=== PATIENT | female | born 1945 | race Caucasian/White ===

== ENCOUNTER 2017-12-11 09:27 | Emergency (ER) | payer MEDICARE | END 2017-12-11 12:33 | disposition home or self-care (01) | LOC: ER 09:27 | DX: M25.561 Pain in right knee (principal); Z85.3 Personal history of malignant neoplasm of breast; Z90.49 Acquired absence of other specified parts of digestive tract; Z90.710 Acquired absence of both cervix and uterus; Z88.5 Allergy status to narcotic agent; Z88.0 Allergy status to penicillin | CPT/HCPCS: 73564; 93971; 99284 ==

== ENCOUNTER 2017-12-18 09:10 | Emergency (ER) | payer MEDICARE ==
[2017-12-18] MEDS: methylPREDNISolone SOD SUCC PF 125 MG/2 ML VIAL. IM ×2 (10:06)
[2017-12-18] MEDS: KETOROLAC 60 MG/2 ML INJ. IM ×2 (10:06)
== END 2017-12-18 10:09 | disposition home or self-care (01) ==
LOC: ER 09:10
DX: M25.561 Pain in right knee (principal); F17.200 Nicotine dependence, unspecified, uncomplicated; Z90.49 Acquired absence of other specified parts of digestive tract; Z90.710 Acquired absence of both cervix and uterus; Z90.13 Acquired absence of bilateral breasts and nipples; Z88.0 Allergy status to penicillin; Z88.5 Allergy status to narcotic agent
CPT/HCPCS: 96372; 99284; J1885; J2930

== ENCOUNTER 2018-05-12 12:00 | Emergency (ER) | payer OTHER, MEDICARE ==
[2018-05-12] MEDS: IBUPROFEN 800 MG TABLET. PO (13:49)
== END 2018-05-12 13:55 | disposition home or self-care (01) ==
LOC: ER 13:55
DX: S63.91XA Sprain of unspecified part of right wrist and hand, initial encounter (principal); Z88.0 Allergy status to penicillin; Z88.5 Allergy status to narcotic agent; W01.0XXA Fall on same level from slipping, tripping and stumbling without subsequent striking against object, initial encounter; Y93.B2 Activity, push-ups, pull-ups, sit-ups; Y99.8 Other external cause status; Y92.89 Other specified places as the place of occurrence of the external cause
CPT/HCPCS: 73130; 99284

== ENCOUNTER 2018-05-17 08:58 | Emergency (ER) | payer OTHER | END 2018-05-17 11:01 | disposition home or self-care (01) | LOC: ER 08:58 | DX: S16.1XXA Strain of muscle, fascia and tendon at neck level, initial encounter (principal); M47.892 Other spondylosis, cervical region; R91.1 Solitary pulmonary nodule; Z88.0 Allergy status to penicillin; Z88.5 Allergy status to narcotic agent; W18.39XA Other fall on same level, initial encounter; Y93.89 Activity, other specified; Y99.0 Civilian activity done for income or pay; Y92.69 Other specified industrial and construction area as the place of occurrence of the external cause | CPT/HCPCS: 72125; 99284-25 ==

== ENCOUNTER 2018-11-14 15:46 | Emergency (ER) | payer MEDICARE, OTHER ==
[~2018-11-14] VITALS: Ht 162.6 cm; Wt 64.4 kg
[~2018-11-14 15:46] MED LIST: CYCL10TA2 PO; DICL100G18 TP; DICL50TA4 PO; HYDR-3164 PO; METH4TAB2 PO; PRED20TA PO; SULF1TAB24 PO
[2018-11-14] MEDS ORDERED: IV NORMAL SALINE 500ML BAG 500 ML IV ONE (18:30)
[2018-11-14] MEDS ORDERED: IPRATRPIUM/ALBUTEROL 0.5/2.5MG 3 ML NEBU. NEB ONE (18:30)
[2018-11-14] MEDS ORDERED: methylPREDNISolone SOD SUCC PF 125 MG/2 ML VIAL. IV ONE (18:30)
[2018-11-14 18:41] LABS: BASO # 0.1 x10^3/uL (0.0-0.2); BASO % 1 % (0-3); EOS # 0.2 x10^3/uL (0.0-0.7); EOS % 2 % (0-3); HEMATOCRIT 40.9 % (36.0-47.0); HEMOGLOBIN 13.8 g/dL (12.0-15.5); LYMPH # 1.4 x10^3/uL (1.0-4.8); LYMPH % 12 % (24-48); MEAN CORPUSCULAR HEMOGLOBIN 32 pg (25-35); MEAN CORPUSCULAR HGB CONC 34 g/dL (31-37); MEAN CORPUSCULAR VOLUME 94 fL (79-100); MONO # 1.1 x10^3/uL (0.0-1.1); MONO % 10 % (0-9); NEUT % 76 % (31-73); PLATELET COUNT 206 x10^3/uL (140-400); RED BLOOD COUNT 4.33 x10^6/uL (3.50-5.40); RED CELL DISTRIBUTION WIDTH 14.1 % (11.5-14.5); WHITE BLOOD COUNT 11.9 x10^3/uL (4.0-11.0)
--- NOTE | 2018-11-14 18:41 | PHYS DOC ---
Past Medical History Past Medical History: Cancer, Other Additional Past Medical Histor: breast ca Past Surgical History: Appendectomy, Hysterectomy, Other Additional Past Surgical Histo: double mastectomy, exploratory lap Alcohol Use: Rarely Drug Use: None Adult General Chief Complaint Chief Complaint: SHORTNESS OF BREATH HPI HPI Patient is a 73 year old female who presents with cough and general malaise. Patient does not have a diagnosis of COPD but she does have an extensive history of tobacco use since she was 16 years old. Today, she reports to the ER with a 5 day history of productive cough and general malaise. She states that she thought she was improving until yesterday when she had more of a sudden onset of muscle aches and generalized pain. She describes some purulent sputum production. No acute dyspnea. Denies chest pain. No ill contacts. No recent travel. Denies nausea or vomiting. No abdominal pain. Patient does not normally use oxygen. Review of Systems Review of Systems Constitutional: + chills Eyes: Denies change in visual acuity HENT: Denies nasal congestion or sore throat Respiratory: + cough productive Cardiovascular: No additional information not addressed in HPI GI: Denies abdominal pain, nausea, vomiting : Denies dysuria Musculoskeletal: Denies back pain Integument: Denies rash or skin lesions Neurologic: Denies headache Endocrine: Denies polyuria All other systems were reviewed and found to be within normal limits, except as documented in this note. Current Medications Current Medications Current Medications Medications (Trade) Dose Ordered Sig/Fred Start Time Stop Time Status Last Admin Dose Admin Acetaminophen (Tylenol) 1,000 mg 1X ONCE 11/14/18 19:00 11/14/18 19:01 DC 11/14/18 19:05 1,000 MG Albuterol/ Ipratropium (Duoneb) 3 ml 1X ONCE 11/14/18 18:30 11/14/18 18:32 DC 11/14/18 18:43 3 ML Azithromycin (Zithromax) 500 mg 1X ONCE 11/14/18 21:30 11/14/18 21:31 DC 11/14/18 21:30 500 MG Methylprednisolone Sodium Succinate (SOLU-Medrol 125MG VIAL) 125 mg 1X ONCE 11/14/18 18:30 11/14/18 18:32 DC 11/14/18 19:05 125 MG Sodium Chloride 500 ml @ 500 mls/hr 1X ONCE 11/14/18 18:30 11/14/18 19:29 DC 11/14/18 19:05 500 MLS/HR Allergies Allergies Allergies Coded Allergies Type Severity Reaction Last Updated Verified Penicillins Allergy Intermediate 05/12/18 Yes codeine Allergy Intermediate morphine ok 05/12/18 Yes Physical Exam Physical Exam Constitutional: Well developed, well nourished, no acute distress, non-toxic appearance HENT: Normocephalic, atraumatic, bilateral external ears normal, oropharynx moist Eyes: PERRLA, EOMI, conjunctiva normal, no discharge Neck: Normal range of motion, no tenderness, supple Cardiovascular:Heart rate regular rhythm, no murmur Lungs & Thorax: diminished bilaterally, few scattered wheezes Abdomen: Bowel sounds normal, soft, no tenderness Skin: Warm, dry, no erythema Extremities: No tenderness, edema, equal pulses in all extremities Neurologic: Alert and oriented X 3 Psychologic: Affect normal Current Patient Data Vital Signs Vital Signs Date Time Temp Pulse Resp B/P (MAP) Pulse Ox O2 Delivery O2 Flow Rate FiO2 11/14/18 18:55 86 183/85 (117) 92 Room Air 11/14/18 18:07 100.7 24 100.7 Lab Values Laboratory Tests Test 11/14/18 18:25 White Blood Count 11.9 x10^3/uL (4.0-11.0) H Red Blood Count 4.33 x10^6/uL (3.50-5.40) Hemoglobin 13.8 g/dL (12.0-15.5) Hematocrit 40.9 % (36.0-47.0) Mean Corpuscular Volume 94 fL (79-100) Mean Corpuscular Hemoglobin 32 pg (25-35) Mean Corpuscular Hemoglobin Concent 34 g/dL (31-37) Red Cell Distribution Width 14.1 % (11.5-14.5) Platelet Count 206 x10^3/uL (140-400) Neutrophils (%) (Auto) 76 % (31-73) H Lymphocytes (%) (Auto) 12 % (24-48) L Monocytes (%) (Auto) 10 % (0-9) H Eosinophils (%) (Auto) 2 % (0-3) Basophils (%) (Auto) 1 % (0-3) Neutrophils # (Auto) 9.0 x10^3uL (1.8-7.7) H Lymphocytes # (Auto) 1.4 x10^3/uL (1.0-4.8) Monocytes # (Auto) 1.1 x10^3/uL (0.0-1.1) Eosinophils # (Auto) 0.2 x10^3/uL (0.0-0.7) Basophils # (Auto) 0.1 x10^3/uL (0.0-0.2) Sodium Level 140 mmol/L (136-145) Potassium Level 4.0 mmol/L (3.5-5.1) Chloride Level 105 mmol/L (98-107) Carbon Dioxide Level 29 mmol/L (21-32) Anion Gap 6 (6-14) Blood Urea Nitrogen 17 mg/dL (7-20) Creatinine 0.7 mg/dL (0.6-1.0) Estimated GFR (Cockcroft-Gault) 82.0 Glucose Level 110 mg/dL (70-99) H Calcium Level 10.5 mg/dL (8.5-10.1) H Troponin I Quantitative < 0.017 ng/mL (0.000-0.055) UV-Sjq-A-Type Natriuretic Peptide 639 pg/mL (0-124) H Influenza Type A Antigen Negative (NEGATIVE) Influenza Type B Antigen Negative (NEGATIVE) Laboratory Tests 11/14/18 18:25 Laboratory Tests 11/14/18 18:25 EKG EKG [] Radiology/Procedures Radiology/Procedures Emphysematous changes No acute consolidations seen Course & Med Decision Making Course & Med Decision Making Pertinent Labs and Imaging studies reviewed. (See chart for details) 18:00: Patient is seen and examined. She has no acute distress. Her presentation seems most consistent with influenza or COPD exacerbation. She has no severely diminished airflow but does have a few wheezes bilaterally. No prior diagnosis of obstructive lung disease but patient likely has emphysema based on her tobacco history. Will check chest x-ray, basic labs and screening for influenza. DuoNeb is also ordered. Patient was evaluated in the ER for cough and general malaise. Her primary complaint was cough. Her x-ray did not reveal any acute findings. She was given 1 DuoNeb in the ER which did improve her symptoms. She was also started on a azithromycin, given 500 mg, in the ER. She was discharged to home and advised follow-up with her primary care doctor or return to the ER. Prior to discharge, the patient was ambulated about the department. Her oxygen saturation remained greater than 95%. The patient's lungs were entirely clear at the time of discharge and she had no dyspnea. Return precautions were discussed and she was advised to come back to the ER for any new or worsening symptoms. Dragon Disclaimer Dragon Disclaimer This electronic medical record was generated, in whole or in part, using a voice recognition dictation system. Departure Departure Disposition: HOME, SELF-CARE Condition: GOOD Referrals: NO PCP (PCP) Scripts Guaifenesin (TUSSIN) 100 Mg/5 Ml Liquid 100 MG PO Q6H, #120 ML Prov: DELMER ROY DO 11/14/18 Benzonatate (TESSALON PERLE) 100 Mg Capsule 100 MG PO TID PRN for COUGH for 5 Days, #15 CAP Prov: DELMER ROY DO 11/14/18 Azithromycin (AZITHROMYCIN TABLET) 250 Mg Tablet 250 MG PO DAILY for ANTI-BIOTIC for 4 Days, #4 TAB 0 Refills Prov: DELMER ROY DO 11/14/18 DELMER ROY DO Nov 14, 2018 18:41
[2018-11-14 18:43] LABS: CALCIUM 10.5 mg/dL (8.5-10.1); CREATININE 0.7 mg/dL (0.6-1.0)
[2018-11-14 18:54] LABS: INFLUENZA A PATIENT NEGATIVE (NEGATIVE); INFLUENZA B PATIENT NEGATIVE (NEGATIVE)
[2018-11-14] MEDS ORDERED: ACETAMINOPHEN 500 MG TABLET PO ONE (19:00)
[2018-11-14 20:48] VITALS: BP 166/72
[2018-11-14] MEDS ORDERED: AZITHROMYCIN 250 MG TABLET. PO ONE (21:30)
[2018-11-14] MEDS ORDERED: AZIT250T6 PO (21:48)
[2018-11-14] MEDS ORDERED: GUAI100L34 PO (21:48)
[2018-11-14] MEDS ORDERED: BENZ100C PO (21:48)
--- NOTE | 2018-11-14 23:47 | RAD ---
Examination: PORTABLE CHEST 1V History: ER PATIENT. COUGH. HX DOUBLE MASCECTOMY. NO PRIOR Comparison/Correlation: 10/09/2016 PA view of the chest with right rib series Findings: Portable upright frontal view chest was obtained. Heart size normal. No infiltrate. Pulmonary vasculature is congested. Small left pleural effusion. Impression: No new infiltrate. Mild pulmonary vasculature congestion. Small left pleural effusion. Electronically signed by: Robert Becerra MD (11/14/2018 11:43 PM) [facility]
--- NOTE | 2018-11-15 05:14 | EKG ---
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
== END 2018-11-14 22:15 | disposition home or self-care (01) ==
LOC: ER 15:46
DX: R05 Cough (principal); R53.81 Other malaise; M79.10 Myalgia, unspecified site; J44.9 Chronic obstructive pulmonary disease, unspecified; Z87.891 Personal history of nicotine dependence; Z88.0 Allergy status to penicillin; Z88.5 Allergy status to narcotic agent
CPT/HCPCS: 36415; 71045; 80048; 83880; 84484; 85025; 87804; 93005; 94640; 96374; 99284; J2930; J7040; J7620; Q0144

== ENCOUNTER 2020-06-17 19:09 | Emergency (ER) | payer MEDICARE ==
[~2020-06-17] VITALS: Ht 162.6 cm; Wt 61.0 kg
[~2020-06-17 19:09] MED LIST changes: +AZIT250T6 PO; +BENZ100C PO; -DICL100G18 TP; +DICL100G54 TP; +GUAI100L34 PO
--- NOTE | 2020-06-17 19:43 | PHYS DOC ---
Past Medical History Past Medical History: Cancer, Other Additional Past Medical Histor: breast ca Past Surgical History: Appendectomy, Hysterectomy, Other Additional Past Surgical Histo: double mastectomy, exploratory lap Smoking Status: Current Every Day Smoker Alcohol Use: Rarely Drug Use: None General Adult EDM: Chief Complaint: HEADACHE HPI: HPI: The history was obtained from the patient. Patient is a 75-year-old female with PMH hypertension who presents with a chief complaint of headache. Patient states she is had intermittent headache for the past 1 month. She states that the headache was generally controlled with Tylenol however today's headache does not seem to be going away. She notes she has been under a lot of stress recently with the passing of her brother. She states the headache began 4 hours prior to arrival is located left frontal portion of her head. She rates it at a 6 out of 10. She denies vision changes or hearing changes. Denies vomiting. Denies neck pain or stiffness. Denies syncope. States she tried Tylenol 2 hours prior to arrival without relief. Denies fevers. States she thinks is already related to her blood pressure as in the past she has had headaches related to high blood pressure. She states she has not taken her medication as prescribed. Patient denies acute onset of headache reaching maximal intensity in under one hour. This is neither the worst headache that Patient has ever experienced, nor was the onset timed with exertional activity or trauma. Patient has not experienced any fever, unusual neck pain or stiffness, syncope, or near syncope. Patient denies numbness, tingling, or weakness of the extremities. Patient also denies personal history of intracranial hemorrhage (including SAH), aneurysm, or AV malformation. Review of Systems: Review of Systems: Constitutional: Denies fever or chills. [] Eyes: Denies change in visual acuity. [] HENT: Denies nasal congestion or sore throat. [] Respiratory: Denies cough or shortness of breath. [] Cardiovascular: Denies chest pain or edema. [] GI: Denies abdominal pain, nausea, vomiting, bloody stools or diarrhea. [] : Denies dysuria. [] Musculoskeletal: Denies back pain or joint pain. [] Integument: Denies rash. [] Neurologic: Positive for headache Endocrine: Denies polyuria or polydipsia. [] Lymphatic: Denies swollen glands. [] Psychiatric: Denies depression or anxiety. [] Heart Score: Risk Factors: Risk Factors: DM, Current or recent (<one month) smoker, HTN, HLP, family history of CAD, obesity. Risk Scores: Score 0 - 3: 2.5% MACE over next 6 weeks - Discharge Home Score 4 - 6: 20.3% MACE over next 6 weeks - Admit for Clinical Observation Score 7 - 10: 72.7% MACE over next 6 weeks - Early Invasive Strategies Allergies: Allergies: Allergies Coded Allergies Type Severity Reaction Last Updated Verified Penicillins Allergy Intermediate 05/12/18 Yes codeine Allergy Intermediate morphine ok 05/12/18 Yes Physical Exam: PE: Constitutional: Well developed, well nourished, no acute distress, non-toxic appearance. [] HENT: Normocephalic, atraumatic, bilateral external ears normal, oropharynx moist, no oral exudates, nose normal. [] Eyes: PERRLA, EOMI, conjunctiva normal, no discharge. [] Neck: Normal range of motion, no tenderness, supple, no stridor. [] Cardiovascular:Heart rate regular rhythm, no murmur [] Lungs & Thorax: Bilateral breath sounds clear to auscultation [] Abdomen: Bowel sounds normal, soft, no tenderness, no masses, no pulsatile masses. [] Skin: Warm, dry, no erythema, no rash. [] Back: No tenderness, no CVA tenderness. [] Extremities: No tenderness, no cyanosis, no clubbing, ROM intact, no edema. [] Neurologic: Alert with intact cognitive function. No aphasia, dysarthria, or neglect. GCS 15. Pupils 3 mm briskly reactive b/l. No APD present. Cranial nerves 2-12 grossly intact; no facial asymmetry present, tongue midline, shoulder shrugging strength intact. Strength 5/5 and symmetric throughout. Light touch sensation intact throughout. Cerebellar testing appropriate without evidence of dysdiadochokinesia. DTR's 2+ in all 4 extremities. Negative pronator drift bilaterally. Gait normal Psychologic: Affect normal, judgement normal, mood normal. [] EKG: EKG: [] Radiology/Procedures: Radiology/Procedures: [][facility] [address] [place] [address] IMAGING REPORT Signed PATIENT: DREA NAVA ACCOUNT: [id number] : 1945 LOCATION: ER AGE: 75 SEX: F EXAM STATUS: REG ER ORD. PHYSICIAN: ADÁN GRESHAM DO REASON: NORTH x 1 month PROCEDURE: CT HEAD WO CONTRAST CT HEAD WO CONTRAST History:Headache for one month Comparison: None. Technique: Noncontrast CT imaging was performed of the head. Exposure: One or more of the following individualized dose reduction techniques were utilized for this examination: 1. Automated exposure control 2. Adjustment of the mA and/or kV according to patient size 3. Use of iterative reconstruction technique. Findings: No acute extra-axial or parenchymal hemorrhage is identified. There is no significant intra-axial mass effect, midline shift, or extra-axial fluid collection. The reardon-white differentiation of the major vascular territories is preserved. The ventricles, sulci, and cisterns are within normal limits in size and configuration. The mastoid air cells and the visualized paranasal sinuses are aerated. No acute calvarial abnormality is identified. There is some atherosclerotic calcification of the carotid siphons bilaterally. There is nonspecific relative lucency of the clivus. Impression: 1. No acute intracranial abnormality is identified. 2. There is nonspecific lucency of the clivus, could be due to greater degree of demineralization although difficult to exclude other underlying marrow replacing process on this exam. Electronically signed by: Jann Evans MD (06/17/2020 8:42 PM) [facility] DICTATED and SIGNED BY: JANN EVANS MD DATE: 06/17/202041 Course & Med Decision Making: Course & Med Decision Making Pertinent Labs and Imaging studies reviewed. (See chart for details) Patient is an overall well-appearing 75-year-old female presents with chief complaint of headache intermittently over the past month. CT head imaging negative. No red flag signs or symptoms regarding her headache. Patient's headache has been resolved with medication. I do feel she is appropriate for discharge home. Return precautions discussed and understood. Stable for discharge home. Dragon Disclaimer: Dragon Disclaimer: This electronic medical record was generated, in whole or in part, using a voice recognition dictation system. Departure Departure Impression: Primary Impression: Headache Qualified Codes: R51 - Headache Disposition: 01 HOME, SELF-CARE Condition: GOOD Referrals: UNKNOWN PCP NAME (PCP) Patient Instructions: General Headache Without Cause Additional Instructions: [facility] [address] [place] [address] [facility] [address] [place] [address] [facility] [address] [facility] [address] [facility] [address] [place] [address] [facility] [address] [place] [address] [address] [address] [place] [address] [facility] [address] [place] [address] [facility] [address] [place] [address] [facility] [address] [place] [address] [facility] [address] [place] [address] Justicifation of Admission Dx: Justifications for Admission: Justification of Admission Dx: N/A ADÁN GRESHAM DO Jun 17, 2020 19:43
[2020-06-17] MEDS ORDERED: diphenhydrAMINE 50 MG/ML VIAL IVP ONE (19:45)
[2020-06-17] MEDS ORDERED: IV NORMAL SALINE 1000ML BAG 1,000 ML IV ONE (19:45)
[2020-06-17] MEDS ORDERED: PROCHLORPERAZINE 10 MG/2 ML VIAL. IV ONE (19:45)
--- NOTE | 2020-06-17 20:44 | RAD ---
CT HEAD WO CONTRAST History:Headache for one month Comparison: None. Technique: Noncontrast CT imaging was performed of the head. Exposure: One or more of the following individualized dose reduction techniques were utilized for this examination: 1. Automated exposure control 2. Adjustment of the mA and/or kV according to patient size 3. Use of iterative reconstruction technique. Findings: No acute extra-axial or parenchymal hemorrhage is identified. There is no significant intra-axial mass effect, midline shift, or extra-axial fluid collection. The reardon-white differentiation of the major vascular territories is preserved. The ventricles, sulci, and cisterns are within normal limits in size and configuration. The mastoid air cells and the visualized paranasal sinuses are aerated. No acute calvarial abnormality is identified. There is some atherosclerotic calcification of the carotid siphons bilaterally. There is nonspecific relative lucency of the clivus. Impression: 1. No acute intracranial abnormality is identified. 2. There is nonspecific lucency of the clivus, could be due to greater degree of demineralization although difficult to exclude other underlying marrow replacing process on this exam. Electronically signed by: Giovanni Morales MD (06/17/2020 8:42 PM) [facility]
[2020-06-17 20:57] VITALS: BP 146/65
== END 2020-06-17 21:22 | disposition home or self-care (01) ==
LOC: ER 19:09
DX: R51 Headache (principal); F43.9 Reaction to severe stress, unspecified; I10 Essential (primary) hypertension; F17.200 Nicotine dependence, unspecified, uncomplicated; Z88.0 Allergy status to penicillin; Z88.5 Allergy status to narcotic agent
CPT/HCPCS: 70450; 96361; 96374; 96375; 99284; J0780; J1200; J7030

== ENCOUNTER 2020-12-23 13:52 | Emergency (ER) | payer MEDICARE, OTHER ==
[~2020-12-23] VITALS: Ht 162.6 cm; Wt 61.3 kg
[2020-12-23] MEDS ORDERED: FLUT9.9S NS (15:04)
[2020-12-23] MEDS ORDERED: CLIN300C9 PO (15:04)
--- NOTE | 2020-12-23 15:05 | PHYS DOC ---
Past Medical History Past Medical History: Cancer, Hypertension, Other Additional Past Medical Histor: BREAST CANCER Past Surgical History: Appendectomy, Hysterectomy, Other Additional Past Surgical Histo: double mastectomy, exploratory lap Smoking Status: Current Every Day Smoker Alcohol Use: None Drug Use: None General Adult EDM: Chief Complaint: HEADACHE HPI: HPI: Patient is a 75 year old female with a history of hypertension, current smoker, presenting to the ED today complaining of a 5 out of 10 throbbing intermittent sinus headache with nasal congestion for 4 weeks. Patient denies any fever. Denies any nausea vomiting, denies this being the worst headache in her life. She states this is a sinus infection and this is typical symptoms for her. Review of Systems: Review of Systems: Constitutional: Denies fever or chills. [] Eyes: Denies change in visual acuity. [] HENT: Reports nasal congestion, denies sore throat. [] Respiratory: Denies cough or shortness of breath. [] Cardiovascular: Denies chest pain or edema. [] GI: Denies abdominal pain, nausea, vomiting, bloody stools or diarrhea. [] : Denies dysuria. [] Musculoskeletal: Denies back pain or joint pain. [] Integument: Denies rash. [] Neurologic: Reports sinus headache, denies focal weakness or sensory changes. [] Psychiatric: Denies depression or anxiety. [] Heart Score: Risk Factors: Risk Factors: DM, Current or recent (<one month) smoker, HTN, HLP, family history of CAD, obesity. Risk Scores: Score 0 - 3: 2.5% MACE over next 6 weeks - Discharge Home Score 4 - 6: 20.3% MACE over next 6 weeks - Admit for Clinical Observation Score 7 - 10: 72.7% MACE over next 6 weeks - Early Invasive Strategies Allergies: Allergies: Allergies Coded Allergies Type Severity Reaction Last Updated Verified Penicillins Allergy Intermediate 05/12/18 Yes codeine Allergy Intermediate morphine ok 05/12/18 Yes Physical Exam: PE: Constitutional: Well developed, well nourished, no acute distress, non-toxic appearance. [] HENT: Normocephalic, atraumatic, bilateral external ears normal, oropharynx moist, no oral exudates, patient sounds congested nasally, bilateral nasal turbinates are boggy and erythematous. Mild frontal sinus tenderness on exam. Mild maxillary sinus tenderness. Eyes: PERRLA, EOMI, conjunctiva normal, no discharge. [] Neck: Normal range of motion, no tenderness, supple, no stridor. [] Cardiovascular:Heart rate regular rhythm, no murmur [] Lungs & Thorax: Bilateral breath sounds clear to auscultation [] Abdomen: Bowel sounds normal, soft, no tenderness, no masses, no pulsatile masses. [] Skin: Warm, dry, no erythema, no rash. [] Back: No tenderness, no CVA tenderness. [] Extremities: No tenderness, no cyanosis, no clubbing, ROM intact, no edema. [] Neurologic: Alert and oriented X 3, normal motor function, normal sensory function, no focal deficits noted. Cranial nerves II through XII intact. Psychologic: Affect normal, judgement normal, mood normal. [] Current Patient Data: Vital Signs: Vital Signs Date Time Temp Pulse Resp B/P (MAP) Pulse Ox O2 Delivery O2 Flow Rate FiO2 12/23/20 13:53 97.9 70 18 141/75 (97) 96 Room Air 97.9 EKG: EKG: [] Radiology/Procedures: Radiology/Procedures: [] Course & Med Decision Making: Course & Med Decision Making Pertinent Labs and Imaging studies reviewed. (See chart for details) This is a 75-year-old current smoker patient presenting to the ED today with acute sinusitis. Symptoms of gotten worse in the last couple days. Will be discharged with Flonase and clindamycin. Encouraged to consider smoking cessation. Follow-up with PCP in 1 to 2 weeks César Disclaimer: César Disclaimer: This electronic medical record was generated, in whole or in part, using a voice recognition dictation system. Departure Departure Impression: Primary Impression: Acute sinusitis Qualified Codes: J01.10 - Acute frontal sinusitis, unspecified Additional Impressions: Sinus headache Smoking addiction Disposition: 01 DC HOME SELF CARE/HOMELESS Condition: STABLE Referrals: UNKNOWN PCP NAME (PCP) follow up with your doctor in 1-2 weeks Patient Instructions: Sinusitis Additional Instructions: You were seen for sinus infection. Consider smoking cessation and take the prescribed medications as ordered. Scripts Fluticasone Propionate (Flonase Allergy Relief) 9.9 Ml [place].susp 2 SPRAYS NS DAILY, #1 SPR Prov: SARATHUNGALUCINA PAROLE DIRECTOR 12/23/20 Clindamycin Hcl (CLINDAMYCIN HCL) 300 Mg Capsule 1 CAP PO TID, #21 CAP Prov: LUCINA SIMMONS APRN 12/23/20 LUCINA SIMMONS APRN Dec 23, 2020 15:05
== END 2020-12-23 15:16 | disposition home or self-care (01) ==
LOC: ER 13:52
DX: J01.10 Acute frontal sinusitis, unspecified (principal); R51.9 Headache, unspecified; R09.81 Nasal congestion; I10 Essential (primary) hypertension; F17.200 Nicotine dependence, unspecified, uncomplicated; Z85.3 Personal history of malignant neoplasm of breast; Z90.89 Acquired absence of other organs; Z90.710 Acquired absence of both cervix and uterus; Z98.890 Other specified postprocedural states; Z88.0 Allergy status to penicillin; Z88.5 Allergy status to narcotic agent
CPT/HCPCS: 99283

== ENCOUNTER 2021-01-08 13:18 | Emergency (ER) | payer OTHER ==
[~2021-01-08] VITALS: Ht 162.6 cm; Wt 63.0 kg
[~2021-01-08 13:18] MED LIST changes: +CLIN300C9 PO; +FLUT9.9S NS
[2021-01-08] MEDS ORDERED: DEXAMETHASONE SOD PHOS 20 MG/5 ML VIAL. IV ONE (14:15)
[2021-01-08] MEDS ORDERED: PROCHLORPERAZINE 10 MG/2 ML VIAL. IV ONE (14:15)
--- NOTE | 2021-01-08 14:33 | RAD ---
INDICATION: Reason: soa, sinus congestion / Spl. Instructions: / History: COMPARISON: November 14, 2018 FINDINGS: Single view of chest obtained. Cardiac mediastinal silhouette is similar to prior with calcific atherosclerosis. There are some diso rganized pulmonary markings bilaterally with interstitial prominence again seen. There is some probab le apical scarring. IMPRESSION: * Repeat demonstration of interstitial opacities bilaterally which could be chronic in nature but mi ld superimposed pulmonary vascular congestion or interstitial infiltrate is not excluded. Electronically signed by: Elmer Dickerson MD (01/08/2021 2:30 PM) [id number]
[2021-01-08 15:00] LABS: BASO # 0.1 x10^3/uL (0.0-0.2); BASO % 1 % (0-3); EOS # 0.2 x10^3/uL (0.0-0.7); EOS % 3 % (0-3); HEMOGLOBIN 13.5 g/dL (12.0-15.5); LYMPH # 1.8 x10^3/uL (1.0-4.8); LYMPH % 21 % (24-48); MEAN CORPUSCULAR HEMOGLOBIN 30 pg (25-35); MEAN CORPUSCULAR HGB CONC 33 g/dL (31-37); MEAN CORPUSCULAR VOLUME 91 fL (79-100); MONO # 0.7 x10^3/uL (0.0-1.1); MONO % 8 % (0-9); NEUT # 5.7 x10^3/uL (1.8-7.7); NEUT % 67 % (31-73); PLATELET COUNT 157 x10^3/uL (140-400); RED BLOOD COUNT 4.52 x10^6/uL (3.50-5.40); RED CELL DISTRIBUTION WIDTH 15.3 % (11.5-14.5); WHITE BLOOD COUNT 8.5 x10^3/uL (4.0-11.0)
[2021-01-08 15:25] LABS: CALCIUM 10.3 mg/dL (8.5-10.1); CREATININE 1.1 mg/dL (0.6-1.0); GFR 48.4; POTASSIUM 4.1 mmol/L (3.5-5.1)
--- NOTE | 2021-01-08 15:27 | EKG ---
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
[2021-01-08 15:32] LABS: ALBUMIN 3.8 g/dL (3.4-5.0); ALBUMIN/GLOBULIN RATIO 1.1 (1.0-1.7); TOTAL BILIRUBIN 0.5 mg/dL (0.2-1.0); TOTAL PROTEIN 7.4 g/dL (6.4-8.2)
--- NOTE | 2021-01-08 15:38 | RAD ---
Exam: CT head and maxillofacial INDICATION: Headache, sinus pressure TECHNIQUE: Sequential axial images through the head and face were obtained without the administration of IV contrast. Comparisons: None FINDINGS: Head: No focal parenchymal lesion or hemorrhage is identified. There is no midline shift or sulcal effaceme nt. No acute vascular territory infarction is identified. Man-white distinction is preserved. The ventricular system is within normal limits without compression hydrocephalus. The basal cisterns are well maintained. Face: The visualized portions of the paranasal sinuses and mastoid air cells are well-pneumatized. No acute fractures. Globes and orbital contents are normal. IMPRESSION: 1. No acute intracranial abnormality. 2. No acute traumatic injury identified at the face. No significant sinus disease. Exposure: One or more of the following in the visualized dose reduction techniques were utilized for this examination: 1. Automated exposure control 2. Adjustment of the MA and/or KV according to patient size Use of iterative of reconstructive technique Electronically signed by: Nando Cesar MD (01/08/2021 3:35 PM) [facility]
[2021-01-08] MEDS ORDERED: CONTRAST GIVEN. MC PRN (16:30)
[2021-01-08] MEDS ORDERED: IOHEXOL 350 MG/ML 100 ML VIAL. IV ONE (16:30)
--- NOTE | 2021-01-08 16:45 | PHYS DOC ---
Past Medical History Past Medical History: Cancer, Hypertension, Other Additional Past Medical Histor: BREAST CANCER Past Surgical History: Appendectomy, Hysterectomy, Other Additional Past Surgical Histo: double mastectomy, exploratory lap Smoking Status: Current Every Day Smoker Alcohol Use: None Drug Use: None General Adult EDM: Chief Complaint: WEAKNESS/GENERALIZED HPI: HPI: 75 yo F past medical history of breast cancer in remission for more than 10 years, hypertension and tobacco dependence, presents to the ED with complaints of 2 brief episodes (less than one minute) of difficulties breathing while at work, just prior to arrival stating "I just felt like I couldn't cetch my breath." Reports she went to [facility] and was referred to the ED for this. States she was seen here a few weeks ago for a headache which is still persistent. Was diagnosed with sinusitis and completed her antibiotics. Also reports persistent fatigue. No known history of Covid. Reports she is received her first vaccination. No history of COPD requiring steroid use, is occasionally prescribed an albuterol inhaler. No known sick contacts. No recent surgery, trauma or hospitalizations. No unilateral leg swelling. No history of coagulopathy. Currently complains of a mild headache. Has no active shortness of breath. Review of Systems: Review of Systems: Constitutional: Denies fever or chills. [] Eyes: Denies change in visual acuity. [] HENT: Denies nasal congestion or sore throat. [] Respiratory: Denies cough or hemoptysis Cardiovascular: Denies chest pain or edema. [] GI: Denies abdominal pain, nausea, vomiting, bloody stools or diarrhea. [] : Denies dysuria. [] Musculoskeletal: Denies back pain or joint pain or unilateral leg swelling Integument: Denies rash. [] Neurologic: Denies neck stiffness focal weakness or sensory changes. [] Endocrine: Denies polyuria or polydipsia. [] Lymphatic: Denies swollen glands. [] Psychiatric: Denies depression or anxiety. [] Heart Score: C/O Chest Pain: No Risk Factors: Risk Factors: DM, Current or recent (<one month) smoker, HTN, HLP, family history of CAD, obesity. Risk Scores: Score 0 - 3: 2.5% MACE over next 6 weeks - Discharge Home Score 4 - 6: 20.3% MACE over next 6 weeks - Admit for Clinical Observation Score 7 - 10: 72.7% MACE over next 6 weeks - Early Invasive Strategies Current Medications: Current Medications Medications (Trade) Dose Ordered Sig/Fred Start Time Stop Time Status Last Admin Dose Admin Dexamethasone Sodium Phosphate (Decadron) 10 mg 1X ONCE 01/08/21 14:15 01/08/21 14:16 DC 01/08/21 15:00 10 MG Info (CONTRAST GIVEN -- Rx MONITORING) 1 each PRN DAILY PRN 01/08/21 16:30 01/10/21 16:29 Iohexol (Omnipaque 350 Mg/ml) 90 ml 1X ONCE 01/08/21 16:30 01/08/21 16:31 DC 01/08/21 16:42 90 ML Prochlorperazine Edisylate (Compazine) 10 mg 1X ONCE 01/08/21 14:15 01/08/21 14:16 DC 01/08/21 15:00 10 MG Allergies: Allergies: Allergies Coded Allergies Type Severity Reaction Last Updated Verified Penicillins Allergy Intermediate 05/12/18 Yes codeine Allergy Intermediate morphine ok 05/12/18 Yes Physical Exam: PE: Constitutional: Well developed, well nourished, no acute distress, non-toxic appearance. HENT: Normocephalic, atraumatic, Eyes: EOMI, conjunctiva normal, no discharge. Neck: Normal range of motion, supple, Cardiovascular: S1/2 present, regular rhythm Lungs & Thorax: Speaking in full sentences, bilateral equal chest rise, no tachypnea or increased work of breathing-patient speaking quickly with no difficulties breathing, is making jokes Abdomen: soft, no tenderness, Skin: Warm, dry, no erythema, no rash. [] Extremities: No tenderness, no cyanosis, no lower extremity edema Neurologic: Alert and oriented X 3, normal motor function, normal sensory function, no focal deficits noted. [] Psychologic: Affect normal, judgement normal, mood normal. [] Current Patient Data: Labs: Laboratory Tests Test 01/08/21 14:20 White Blood Count 8.5 x10^3/uL (4.0-11.0) Red Blood Count 4.52 x10^6/uL (3.50-5.40) Hemoglobin 13.5 g/dL (12.0-15.5) Hematocrit 41.0 % (36.0-47.0) Mean Corpuscular Volume 91 fL (79-100) Mean Corpuscular Hemoglobin 30 pg (25-35) Mean Corpuscular Hemoglobin Concent 33 g/dL (31-37) Red Cell Distribution Width 15.3 % (11.5-14.5) H Platelet Count 157 x10^3/uL (140-400) Neutrophils (%) (Auto) 67 % (31-73) Lymphocytes (%) (Auto) 21 % (24-48) L Monocytes (%) (Auto) 8 % (0-9) Eosinophils (%) (Auto) 3 % (0-3) Basophils (%) (Auto) 1 % (0-3) Neutrophils # (Auto) 5.7 x10^3/uL (1.8-7.7) Lymphocytes # (Auto) 1.8 x10^3/uL (1.0-4.8) Monocytes # (Auto) 0.7 x10^3/uL (0.0-1.1) Eosinophils # (Auto) 0.2 x10^3/uL (0.0-0.7) Basophils # (Auto) 0.1 x10^3/uL (0.0-0.2) D-Dimer (Joyce) 3.46 ug/mlFEU (0.00-0.50) H Sodium Level 138 mmol/L (136-145) Potassium Level 4.1 mmol/L (3.5-5.1) Chloride Level 102 mmol/L (98-107) Carbon Dioxide Level 28 mmol/L (21-32) Anion Gap 8 (6-14) Blood Urea Nitrogen 28 mg/dL (7-20) H Creatinine 1.1 mg/dL (0.6-1.0) H Estimated GFR (Cockcroft-Gault) 48.4 BUN/Creatinine Ratio 25 (6-20) H Glucose Level 100 mg/dL (70-99) H Calcium Level 10.3 mg/dL (8.5-10.1) H Total Bilirubin 0.5 mg/dL (0.2-1.0) Aspartate Amino Transferase (AST) 29 U/L (15-37) Alanine Aminotransferase (ALT) 18 U/L (14-59) Alkaline Phosphatase 80 U/L (46-116) Creatine Kinase 81 U/L (26-192) Troponin I Quantitative < 0.017 ng/mL (0.000-0.055) IT-Ynl-I-Type Natriuretic Peptide 394 pg/mL (0-449) Total Protein 7.4 g/dL (6.4-8.2) Albumin 3.8 g/dL (3.4-5.0) Albumin/Globulin Ratio 1.1 (1.0-1.7) Laboratory Tests 01/08/21 14:20 Laboratory Tests 01/08/21 14:20 Vital Signs: Vital Signs Date Time Temp Pulse Resp B/P (MAP) Pulse Ox O2 Delivery O2 Flow Rate FiO2 01/08/21 15:01 97.6 60 24 145/63 (90) 98 Room Air 97.6 EKG: EKG: Sinus rhythm 60 bpm, no axis deviation, normal intervals, Vinny T wave inversions versus ST segment depressions in lead I, aVL, V5 and V6,-could rep resent LVH with repolarization, no ST elevations or ST depressions, patient with no active chest pressure or pain Radiology/Procedures: Radiology/Procedures: IMAGING REPORT Signed PATIENT: DREA NAVA ACCOUNT: [id number] : 1945 LOCATION: ER AGE: 75 SEX: F EXAM STATUS: REG ER ORD. PHYSICIAN: MOSES THACKER DO REASON: soa, r/o pe PROCEDURE: CT ANGIOGRAPHY CHEST EXAM: CT chest with contrast - pulmonary embolus protocol CLINICAL HISTORY: Shortness of air. COMPARISON: None. TECHNIQUE: CT of the chest following the administration of intravenous contrast during the pulmonary arterial phase. Axial, coronal and sagittal reformatted images were generated including MIP images. ---PQRS compliance statement - One or more of the following individualized dose reduction techniques were utilized for this study: 1. Automated exposure control 2. Adjustment of the mA and/or kV according to patient size 3. Use of iterative reconstruction technique--- FINDINGS: CHEST: Diagnostic quality: Adequate. Pulmonary emboli: No pulmonary emboli to the level of the subsegmental branches. More peripheral vessels are not well assessed. Right heart strain: None Pulmonary arteries: Normal in caliber. Pectus deformity of the chest wall. Heart is not enlarged. No pericardial effusion. Coronary artery and aortic root calcifications are seen. No pleural effusion or pneumothorax. No axillary lymphadenopathy. Emphysematous changes are seen. 2.5 x 1.4 cm pleural-based nodular opacity seen in the right upper lobe peripherally. Biapical pleural/parenchyma scarring/thickening is seen. 7 mm right upper lobe lung nodule (series 3 image 30). 4 mm right upper lobe lung nodule (series 3 image 31). Linear and bandlike opacities lower lobes, lingula likely scarring/atelectasis. Visualized Upper abdomen: Unremarkable Bones: Height loss of the L1 vertebral body, age-indeterminate compression fracture. Pectus deformity of the chest wall. IMPRESSION: 1. No evidence for acute pulmonary embolus. 2. 2.5 x 1.4 cm pleural-based nodular opacity in the right upper lobe peripherally. This is indeterminate and malignancy is not excluded. Recommend further evaluation with PET/CT or comparison to prior CT chest if available to ensure stability. 3. Multiple lung nodules, particularly in the right upper lung. 7 mm right upper lobe lung nodule. Close attention on follow-up, CT in 3-6 months is recommended to ensure stability. 4. Height loss of L1 vertebral body, age-indeterminate compression fracture. Electronically signed by: Tashi Campos MD (01/08/2021 5:03 PM) [facility] DICTATED and SIGNED BY: TASHI CAMPOS MD DATE: 01/08/21 [id number] IMAGING REPORT Signed PATIENT: DREA NAVA ACCOUNT: [id number] : 1945 LOCATION: ER AGE: 75 SEX: F EXAM STATUS: REG ER ORD. PHYSICIAN: MOSES THACKER DO REASON: mosqueda, sinus pressure PROCEDURE: CT HEAD AND MAXILLOFACIAL WO Exam: CT head and maxillofacial INDICATION: Headache, sinus pressure TECHNIQUE: Sequential axial images through the head and face were obtained without the administration of IV contrast. Comparisons: None FINDINGS: Head: No focal parenchymal lesion or hemorrhage is identified. There is no midline shift or sulcal effacement. No acute vascular territory infarction is identified. Man-white distinction is preserved. The ventricular system is within normal limits without compression hydrocephal us. The basal cisterns are well maintained. Face: The visualized portions of the paranasal sinuses and mastoid air cells are well- pneumatized. No acute fractures. Globes and orbital contents are normal. IMPRESSION: 1. No acute intracranial abnormality. 2. No acute traumatic injury identified at the face. No significant sinus disease. Exposure: One or more of the following in the visualized dose reduction techniques were utilized for this examination: 1. Automated exposure control 2. Adjustment of the MA and/or KV according to patient size Use of iterative of reconstructive technique Electronically signed by: Nando Butts MD (01/08/2021 3:35 PM) [facility] DICTATED and SIGNED BY: NANDO BUTTS MD DATE: 01/08/21 [id number] IMAGING REPORT Signed PATIENT: DREA NAVA ACCOUNT: [id number] : 1945 LOCATION: ER AGE: 75 SEX: F EXAM STATUS: REG ER ORD. PHYSICIAN: MOSES THACKER DO REASON: soa, sinus congestion PROCEDURE: PORTABLE CHEST 1V INDICATION: Reason: soa, sinus congestion / Spl. Instructions: / History: COMPARISON: November 14, 2018 FINDINGS: Single view of chest obtained. Cardiac mediastinal silhouette is similar to prior with calcific atherosclerosis. There are some disorganized pulmonary markings bilaterally with interstitial prominence again seen. There is some probable apical scarring. IMPRESSION: * Repeat demonstration of interstitial opacities bilaterally which could be chronic in nature but mild superimposed pulmonary vascular congestion or interstitial infiltrate is not excluded. Electronically signed by: Lorri Reese MD (01/08/2021 2:30 PM) [id number] DICTATED and SIGNED BY: LORRI REESE MD DATE: 01/08/21 [id number] 0 Course & Med Decision Making: Course & Med Decision Making Pertinent Labs and Imaging studies reviewed. (See chart for details) 2 recent episodes of shortness of breath that spontaneously resolved with no dizziness, near syncope, chest pain or pressure or neurologic deficits. CT angio negative for life-threatening pulmonary embolus although does suspicious nodules/opacities, malignancy not excluded. CT report was printed to patient to take to her primary care physician for urgent/nonemergent follow-up. ED presentation has been asymptomatic and CT findings do not correlate with patient's complaints. Will discharge home with strict ED return precautions were given for syncope, neurologic deficits, chest pain or increased work of breathing. Encouraged urgent outpatient follow-up with PMD-will need renal function rechecked. Life-threatening processes were considered but are low suspicion at this time, given history, physical exam and ED workup. Pt was educated on all prescription medications and adverse effects. All patient's questions were answered and pt was stable at time of discharge. Life/limb-threatening differential includes but is not limited to, ACS, dysrhythmia, pneumothorax or hemothorax, pulmonary embolus, pneumonia, bronchoconstriction, pulmonary edema, angioedema, epiglottitis, tracheitis, Evan's angina, RPA/CARD WRITER HAND, anaphylaxis, angioedema, cardiac tamponade or murmurs, pericarditis, myocarditis, poisoning or toxicity, sepsis or autoimmune/neurologic disease. I spoken with the patient and her caregivers. I explained the patient's condition, diagnoses and treatment plan based on the information available to me at this time. I have answered the patient and her caregiver's questions and addressed any concerns. The patient and her caregivers have a good understanding of patient's diagnosis, condition and treatment plan as can be expected at this point. Vital signs have been stable. Patient's condition is stable and appropriate for discharge from the emergency department. Patient will pursue further outpatient evaluation with primary care physician or other designated or consulting physician as outlined in the discharge instructions. The patient and/or caregivers are agreeable to this plan of care and follow-up instructions have been explained in detail. The patient and/or caregivers have received these instructions in written form and have expressed an understanding of the discharge instructions. The patient and/or caregivers are aware that any significant change of condition or worsening of symptoms should prompt immediate return to this or the closest emergency department or call to 911. César Disclaimer: César Disclaimer: This electronic medical record was generated, in whole or in part, using a voice recognition dictation system. Departure Departure Impression: Primary Impression: Dyspnea Additional Impressions: Headache ROSALEE (acute kidney injury) Disposition: 01 DC HOME SELF CARE/HOMELESS Condition: STABLE Referrals: UNKNOWN PCP NAME (PCP) repeat renal function within 1 week FOLLOW UP WITH FAMILY MEDICINE: Family Medicine Address: [address] [place] [id number] Patient Instructions: Acute Kidney Injury, Shortness of Breath Additional Instructions: EMERGENCY DEPARTMENT GENERAL DISCHARGE INSTRUCTIONS Thank you for coming to [facility] Emergency Department (ED) today and trusting us with you care. We trust that you had a positive experience in our Emergency Department. If you wish to speak to the department management, you may call the Director at [phone]. YOUR FOLLOW UP INSTRUCTIONS ARE FOLLOWS: 1. Do you have a private Doctor? If you do not have a private doctor, please ask for a resource list of physicians or clinics that may be able to assist you with follow up care. 2. The Emergency Physicain has interpreted your x-rays. The X-Ray specialist will also review them. If there is a change in the findings, you will be notified in 48 hours when at all possible. 3. A lab test or culture has been done, your results will be reviewed and you will be notified if you need a change in treatment. ADDITIONAL INSTRUCTIONS AND INFORMATION: 1. Your care today has been supervised by a physician who is specially trained in emergency care. Many problems require more than one evaluation for a complete diagnosis and treatment. We recommend that you schedule your follow up appointment as recommended to ensure complete treatment of you illness or injury. If you are unable to obtain follow up care and continue to have a problem, or if your condition worsens, we recommend that you return to the ED. 2. We are not able to safely determine your condition over the phone nor are we able to give sound medical advice over the phone. For these safety reasons, if you call for medical advice we will ask you to come to the ED for further evaluation. 3. If you have any questions regarding these discharge instructions please call the ED at [phone]. SAFETY INFORMATION: In the interest of safety, wellness, and injury prevention; we encourage you to wear your sealbelt, if you smoke; quite smoking, and we encourage family to use a protective helmet for bicycling and other sporting events that present an increased risk for head injury. IF YOUR SYMPTOMS WORSEN OR NEW SYMPTOMS DEVELOP, OR YOU HAVE CONCERNS ABOUT YOUR CONDITION; OR IF YOUR CONDITION WORSENS WHILE YOU ARE WAITING FOR YOUR FOLLOW UP APPOINTMENT; EITHER CONTACT YOUR PRIMARY CARE DOCTOR, THE PHYSICIAN WHOSE NAME AND NUMBER YOU WERE GIVEN, OR RETURN TO THE ED IMMEDIATELY. MOSES THACKER DO Jan 08, 2021 16:45
--- NOTE | 2021-01-08 17:06 | RAD ---
EXAM: CT chest with contrast - pulmonary embolus protocol CLINICAL HISTORY: Shortness of air. COMPARISON: None. TECHNIQUE: CT of the chest following the administration of intravenous contrast during the pulmonary arterial phase. Axial, coronal and sagittal reformatted images were generated including MIP images. ---PQRS compliance statement - One or more of the following individualized dose reduction techniques were utilized for this study: 1. Automated exposure control 2. Adjustment of the mA and/or kV according to patient size 3. Use of iterative reconstruction technique--- FINDINGS: CHEST: Diagnostic quality: Adequate. Pulmonary emboli: No pulmonary emboli to the level of the subsegmental branches. More peripheral ves sels are not well assessed. Right heart strain: None Pulmonary arteries: Normal in caliber. Pectus deformity of the chest wall. Heart is not enlarged. No pericardial effusion. Coronary artery a nd aortic root calcifications are seen. No pleural effusion or pneumothorax. No axillary lymphadenopathy. Emphysematous changes are seen. 2.5 x 1.4 cm pleural-based nodular opacity seen in the right upper lo be peripherally. Biapical pleural/parenchyma scarring/thickening is seen. 7 mm right upper lobe lung nodule (series 3 image 30). 4 mm right upper lobe lung nodule (series 3 image 31). Linear and bandlik e opacities lower lobes, lingula likely scarring/atelectasis. Visualized Upper abdomen: Unremarkable Bones: Height loss of the L1 vertebral body, age-indeterminate compression fracture. Pectus deformity of the chest wall. IMPRESSION: 1. No evidence for acute pulmonary embolus. 2. 2.5 x 1.4 cm pleural-based nodular opacity in the right upper lobe peripherally. This is indeterm inate and malignancy is not excluded. Recommend further evaluation with PET/CT or comparison to prior CT chest if available to ensure stability. 3. Multiple lung nodules, particularly in the right upper lung. 7 mm right upper lobe lung nodule. C lose attention on follow-up, CT in 3-6 months is recommended to ensure stability. 4. Height loss of L1 vertebral body, age-indeterminate compression fracture. Electronically signed by: Tashi Loo MD (01/08/2021 5:03 PM) [facility]
[2021-01-08 18:50] VITALS: BP 154/47
== END 2021-01-08 19:16 | disposition home or self-care (01) ==
LOC: ER 13:18
DX: R06.02 Shortness of breath (principal); R51.9 Headache, unspecified; N17.9 Acute kidney failure, unspecified; I10 Essential (primary) hypertension; F17.200 Nicotine dependence, unspecified, uncomplicated; Z88.0 Allergy status to penicillin; Z88.5 Allergy status to narcotic agent
CPT/HCPCS: 36415; 70450; 70486; 71045; 71275; 80053; 82550; 83880; 84484; 85025; 85379; 93005; 96374; 96375; 99285; J0780; J1100; Q9967

== ENCOUNTER 2021-04-02 14:42 | Emergency (ER) | payer OTHER ==
[~2021-04-02] VITALS: Ht 162.6 cm; Wt 61.3 kg
--- NOTE | 2021-04-02 15:39 | RAD ---
Site ID: [id number] EXAMINATION: XR ELBOW COMPLETE_RIGHT 3+ VIEWS. HISTORY: 75 years Female right elbow pain COMPARISON: None. FINDINGS: No fracture, dislocation or radiopaque foreign body. The joint spaces and articular surfaces appea r unremarkable. IMPRESSION: Unremarkable exam. Electronically signed by: Panchito Baldwin MD (04/02/2021 3:36 PM) [id number]
[2021-04-02] MEDS ORDERED: CYCL10TA2 PO (16:18)
[2021-04-02] MEDS ORDERED: MUPI22OI2 TP (16:18)
[2021-04-02] MEDS ORDERED: DICL50TA2 PO (16:18)
--- NOTE | 2021-04-02 16:19 | PHYS DOC ---
Past Medical History Past Medical History: Hypertension Additional Past Medical Histor: BREAST CANCER Past Surgical History: Other Additional Past Surgical Histo: double mastectomy, exploratory lap Smoking Status: Current Every Day Smoker Alcohol Use: None Drug Use: None General Adult EDM: Chief Complaint: MECHANICAL FALL HPI: HPI: Patient is a 75 year old female with history of hypertension who presents to the ED today complaining of falling at work on Wednesday. Patient states she tripped and fell, denies any loss of consciousness, denies hitting her head on the ground. Denies being on any blood thinner. She states she has X brought to the body from this. She also has a skin tear on the left forearm. She is also complaining of 8 out of 10 right elbow pain that has been going on for 3 weeks and worse at work. 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 She states sometimes she has trouble grabbing items. She states immobilization relieves the pain. Review of Systems: Review of Systems: Constitutional: Denies fever or chills. [] Eyes: Denies change in visual acuity. [] HENT: Denies nasal congestion or sore throat. [] Respiratory: Denies cough or shortness of breath. [] Cardiovascular: Denies chest pain or edema. [] GI: Denies abdominal pain, nausea, vomiting, bloody stools or diarrhea. [] : Denies dysuria. [] Musculoskeletal: Reports right elbow pain. Reports aches from falling Integument: Reports left forearm skin tear Neurologic: Denies headache, focal weakness or sensory changes. [] Psychiatric: Denies depression or anxiety. [] Heart Score: C/O Chest Pain: N/A Risk Factors: Risk Factors: DM, Current or recent (<one month) smoker, HTN, HLP, family history of CAD, obesity. Risk Scores: Score 0 - 3: 2.5% MACE over next 6 weeks - Discharge Home Score 4 - 6: 20.3% MACE over next 6 weeks - Admit for Clinical Observation Score 7 - 10: 72.7% MACE over next 6 weeks - Early Invasive Strategies Allergies: Allergies: Allergies Coded Allergies Type Severity Reaction Last Updated Verified Penicillins Allergy Intermediate 05/12/18 Yes codeine Allergy Intermediate morphine ok 05/12/18 Yes Physical Exam: PE: Constitutional: Well developed, well nourished, no acute distress, non-toxic appearance. [] HENT: Normocephalic, atraumatic, bilateral external ears normal, oropharynx moist, no oral exudates, nose normal. [] Eyes: PERRLA, EOMI, conjunctiva normal, no discharge. [] Neck: Normal range of motion, no tenderness, supple, no stridor. [] Cardiovascular:Heart rate regular rhythm, no murmur [] Lungs & Thorax: Bilateral breath sounds clear to auscultation [] Abdomen: Bowel sounds normal, soft, no tenderness, no masses, no pulsatile masses. [] Skin: Left forearm with a scabbed up skin tear roughly 3 x 3 cm. There is slight erythema around it but does not appear infected yet. Back: No tenderness, no CVA tenderness. [] Extremities: No tenderness, no cyanosis, no clubbing, ROM intact, no edema. [] Neurologic: Alert and oriented X 3, normal motor function, normal sensory function, no focal deficits noted. [] Psychologic: Affect normal, judgement normal, mood normal. [] Current Patient Data: Vital Signs: Vital Signs Date Time Temp Pulse Resp B/P (MAP) Pulse Ox O2 Delivery O2 Flow Rate FiO2 04/02/21 15:06 97.7 72 20 120/73 (89) 98 Room Air 97.7 EKG: EKG: [] Radiology/Procedures: Radiology/Procedures: []PROCEDURE: ELBOW RIGHT 3V Site ID: [id number] EXAMINATION: XR ELBOW COMPLETE_RIGHT 3+ VIEWS. HISTORY: 75 years Female right elbow pain COMPARISON: None. FINDINGS: No fracture, dislocation or radiopaque foreign body. The joint spaces and articular surfaces appear unremarkable. IMPRESSION: Unremarkable exam. Electronically signed by: Khadijah Baldwin MD (04/02/2021 3:36 PM) [id number] DICTATED and SIGNED BY: KHADIJAH BALDWIN MD DATE: 04/02/21 [id number] 0 Course & Med Decision Making: Course & Med Decision Making Pertinent Labs and Imaging studies reviewed. (See chart for details) This is a 75-year-old female patient presenting to the ED today with aches throughout her body after falling down on Wednesday at work. Has a skin tear on the left forearm, tetanus up-to-date. Bactroban ointment prescribed for the area. Also complaining of right elbow pain for 3 weeks. By nature of her job this appears to be tennis elbow. Natanael bandage recommended to the elbow and follow-up with orthopedic doctor. César Disclaimer: César Disclaimer: This electronic medical record was generated, in whole or in part, using a voice recognition dictation system. Departure Departure Impression: Primary Impression: Fall from standing Qualified Codes: W19.XXXA - Unspecified fall, initial encounter Additional Impressions: Right tennis elbow Musculoskeletal pain of left lower extremity Musculoskeletal pain of right lower extremity Skin tear Disposition: 01 HOME / SELF CARE / HOMELESS Condition: STABLE Referrals: LENA TONG (PCP) ZAIRE KRAMER MD Follow-up in 1 week Patient Instructions: Fall Prevention and Home Safety, Tennis Elbow, Pnir-mg-Uset Additional Instructions: You were evaluated in the emergency room, we recommend an Natanael bandage to the right elbow as tolerated. Please follow-up with orthopedic doctor provided in 1 to 2 weeks. Apply Bactroban ointment prescribed to the skin tear on the left forearm. Scripts Mupirocin (MUPIROCIN OINTMENT) 22 Gm Oint...g. 1 MEETA TP TID for WOUND CARE, #1 EACH Prov: LUCINA SIMMONS APRN 04/02/21 Cyclobenzaprine Hcl (CYCLOBENZAPRINE HCL) 10 Mg Tablet 1 TAB PO TID, #30 TAB Prov: LUCINA SIMMONS APRN 04/02/21 Diclofenac Potassium (DICLOFENAC POTASSIUM) 50 Mg Tablet 1 TAB PO BID, #20 TAB 0 Refills Prov: LUCINA SIMMONS APRN 04/02/21 LUCINA SIMMONS APRN Apr 02, 2021 16:19
[2021-04-02 16:49] VITALS: BP 125/75
== END 2021-04-02 16:51 | disposition home or self-care (01) ==
LOC: ER 14:42
DX: S51.811A Laceration without foreign body of right forearm, initial encounter (principal); M77.11 Lateral epicondylitis, right elbow; M79.605 Pain in left leg; M79.604 Pain in right leg; I10 Essential (primary) hypertension; F17.200 Nicotine dependence, unspecified, uncomplicated; W01.0XXA Fall on same level from slipping, tripping and stumbling without subsequent striking against object, initial encounter; Y93.89 Activity, other specified; Y92.89 Other specified places as the place of occurrence of the external cause; Y99.8 Other external cause status
CPT/HCPCS: 73080; 99284